=== PATIENT | male | born 1965 | race African-American/Black ===

== ENCOUNTER 2021-03-07 08:23 | Outpatient (CLI) | payer BC, SELFPAY ==
--- NOTE | 2021-03-07 10:30 | ECG_ITS ---
Measurements Intervals [place] Rate: 61 P: 44 [place]: 156 QRS: 27 QRSD: 101 T: 19 QT: 385 QTc: 391 Interpretive Statements SINUS RHYTHM BASELINE ARTIFACT- I, II, III, AVR, AVL, AVF, V1-V6 BORDERLINE ECG Electronically Signed On 03-07-2021 11:03:13 CDT by Tommie Mcdaniels D.O.
[2021-03-07 11:03] LABS: Basophils Percent Auto 0.7 % (0.2-1.2); Eosinophils Absolute Auto 0.2 K/mm3 (0-0.3); Eosinophils Percent Auto 2.7 % (0-4.4); Hematocrit 43.6 % (42.0-52.0); Hemoglobin 14.4 g/dL (14.0-18.0); Immature Granulocyte Absolute 0.02 K/mm3 (0.00-0.031); Immature Granulocyte Percent A 0.3 % (0-0.5); Lymphocytes Absolute Auto 1.91 K/mm3 (0.9-3.2); Lymphocytes Percent Auto 32.6 % (18.3-44.2); Mean Corpuscular Hemoglobin 29.3 pg (26-34); Mean Corpuscular Volume 88.8 fl (80-100); Mean Platelet Volume 9.6 fl (7.4-10.4); Monocytes Absolute Auto 0.5 K/mm3 (0.1-0.6); Monocytes Percent Auto 7.9 % (2.6-8.5); Neutrophils Absolute Auto 3.3 K/mm3 (1.3-6.7); Neutrophils Percent Auto 55.8 % (45.5-73.1); Platelet Count Result 232 k/mm3 (150-375); Red Blood Count 4.91 M/mm3 (4.6-6.20); Red Cell Distribution Width 12.7 % (11.5-14.5); White Blood Count 5.9 K/mm3 (4.5-10.0)
[2021-03-07 11:06] LABS: Add Urine Microscopic? YES; Appearance Urine Clear (Clear); Bacteria Urine Trace /hpf; Bilirubin Urine Negative (Negative); Blood Urine Negative (Negative); Color Urine Yellow (Yellow); Glucose Urine UA Negative (Negative); Ketones Urine Negative (Negative); Leukocyte Esterase Ur Negative LEU/UL (Negative); Mucus Urine Rare /lpf; Nitrate Urine Negative (Negative); Protein Urine Negative (Negative); RBC Urine 0-2 /hpf (0-2); Squamous Epithelial Cell Urine Occasional /hpf (Few); WBC Urine 0-3 /hpf
[2021-03-07 11:10] LABS: Albumin Level 4.1 g/dL (3.5-5.1); Anion Gap 4 mmol/L (8-16); Blood Urea Nitrogen 16 mg/dL (9-20); Calcium 9.1 mg/dL (8.4-10.2); Carbon Dioxide 30 mmol/L (22-30); Chloride 106 mmol/L (98-107); Estimated Glomerular Filt Rate > 60; Glucose 99 mg/dL (75-110); Hemoglobin A1C 5.5 % (<5.7); Sodium 140 mmol/L (137-145)
[2021-03-07 11:12] LABS: Urine Cotinine NEGATIVE
[2021-03-07 11:16] LABS: INR 0.9; Prothrombin Time 13.2 Seconds (11.1-14.7)
[2021-03-07 11:17] LABS: Partial Thromboplastin Time 26.5 SECONDS (22.3-36.8)
== END 2021-03-07 08:24 | disposition home or self-care (01) ==
PROVIDERS: Visit Provider Orthopaedic Surgery
DX: Z01.818 Encounter for other preprocedural examination (principal); M16.12 Unilateral primary osteoarthritis, left hip
CPT/HCPCS: 80048; 80307; 81001; 82040; 83036; 85025; 85610; 85730; 86850; 86900; 86901; 87081; 93005

== ENCOUNTER → 2021-03-11 01:15 | Outpatient (CLI) | payer BC, SELFPAY ==
[2021-03-11 19:16] LABS: SARS-CoV-2 RNA PCR Negative
== END ==
PROVIDERS: Visit Provider Orthopaedic Surgery
DX: Z01.812 Encounter for preprocedural laboratory examination (principal); Z20.822 Contact with and (suspected) exposure to COVID-19
CPT/HCPCS: C9803; U0003; U0005

== ENCOUNTER 2021-03-15 01:22 | Day surgery (SDC) | payer BC, SELFPAY ==
[2021-03-07 10:16] VITALS: BP 130/88; PULSE 72; RESP 20; TEMP 36.9; O2SAT 98; BMI 34.5
[2021-03-15] VITALS (15 sets, daily range): BP systolic 106–144; BP diastolic 64–96; PULSE 66–107; RESP 12–20; TEMP 36.1–37.4; O2SAT 94–100
--- NOTE | ~2021-03-15 | XR_ITS ---
EXAMINATION: XR hip LT 1V EXAM DATE: 03/15/2021 10:39 INDICATION: Left hip arthroplasty. TECHNIQUE: Portable frontal projection left hip obtained immediately following arthroplasty performe d by orthopedic surgeon Jake Marin MD. FINDINGS: Patient is status post left hip arthroplasty. The orthopedic hardware is in expected posi tion on this frontal image. Gas within the hip joint. There is small amount of subcutaneous gas, some soft tissue swelling. Correlate with procedure note. IMPRESSION: Status post left hip arthroplasty. Reviewed, dictated and finalized at location B.
[2021-03-15] MEDS: ACETAMINOPHEN 500 MG TABLET 1000 MG PO (06:47)
--- NOTE | 2021-03-15 06:59 | P.PNAN_ITS ---
Anes - Initial Pre Proc Eval Procedure: Operation Date: 03/15/21 07:30 Proposed Procedures p Left Total Hip Arthroplasty - Jake Marin MD Date/Time: 03/15/21 06:59 Surgeon: Jake Marin MD Pre Op Diagnosis: Left Hip DJD Patient Data Age: 55 Gender: M Height: 1.8 m Weight: 112.3 kg Last Vital Signs Temp 36.9 C 03/07/21 10:16 Pulse 72 03/07/21 10:16 Resp 20 03/07/21 10:16 BP 130/88 03/07/21 10:16 Pulse Ox 98 03/07/21 10:16 Allergies Allergy/AdvReac Type Severity Reaction Status Date / Time povidone-iodine Allergy Intermediate Swelling Verified 03/15/21 06:44 [From Betadine] soap [From Betadine] Allergy Intermediate Swelling Verified 03/15/21 06:44 Home Medications Medication Instructions Recorded Confirmed Type acetaminophen 650 mg 650 mg PO Q12H PRN 08/29/20 03/15/21 History tablet,extended release chlorhexidine gluconate 4 % 1 applic TOPICAL ONCE #237 ml 12/22/20 03/15/21 Rx topical liquid hydrocodone-acetaminophen 1 tablet Q4-6H PRN 03/07/21 03/15/21 History Patient hx anesthesia problems: none Family hx anesthesia problems: none [facility] Past Medical History Medical History (Updated 03/14/21 @ 13:13 by Arnold Kirby, DO) Chronic, continuous use of opioids 10/325 [place] 4-6 hours Degenerative joint disease of left hip Left hip pain Vision abnormalities Weight loss Surgical History Surgical History History of arthroscopy of knee Dr. Gama at [facility] Social History Social History Smoking status: Never smoker Alcohol intake: current Drinks per week: 3 Substance use: never Substance use type: does not use Living arrangements: with family Spiritual care concerns: No (PT STATES BLOOD PRODUCTS OK TO RECEIVE) Anes - Eval Final PreProcedure Day of Procedure 03/15/21 06:59 Patient weight: obese Heart: regular rate and rhythm Lungs: clear to auscultation and normal air movement Airway: Mallampati scale class II Neurological: alert and oriented Last oral intake: >/= 8 hours ASA classification: III Emergent: no Anesthetic plan: proceed Anesthesia type and monitoring: general ETT and standard monitoring Informed Consent: The patient's anesthetic plan and its attendant risks and benefits were discussed with the patient/family/POA. Questions were solicited a nd answers provided to the satisfaction of the patient/family/POA.
[2021-03-15] MEDS: LACTATED RINGERS 1,000 ML 30 ML IV CONT ×2 (07:03→10:24)
[2021-03-15] MEDS: TRANEXAMIC ACID 1,000MG/ISO100 1,000 MG/100 ML BAG 200 MG IVPB (07:14)
--- NOTE | 2021-03-15 07:20 | WPDHPUPDATE1 ---
History and Physical Update Update Date/Time: 03/15/21 07:20 History and Physical has been reviewed, including an updated exam of the patient. There are NO changes in the patient's condition. Risks, benefits, and alternatives have been discussed and questions answered. Patient agrees to proceed with procedure.
[2021-03-15] MEDS: ceFAZolin 2 GM/D5W 50 ML 2 GM/50 ML BAG IVPB ×3 (07:30→23:39)
--- NOTE | 2021-03-15 10:16 | P.OP_ITS ---
Procedure Note - Detailed Date of procedure: 03/15/21 Pre-op diagnosis: Left Hip DJD LEFT HIP DJD Post-op diagnosis: same Procedure performed: LEFT REJI Description of procedure: THE PATIENT WAS TAKEN TO THE OPERATING ROOM IN STABLE CONDITION. SHE WAS PLACED IN THE LATERAL DECUBITUS AND THE LEFT LOWER EXTREMITY WAS PREPPED AND DRAPED IN THE STERILE FASHION. INCISION WAS MADE IN THE POSTERIOR LATERAL SIDE OF THE HIP, DOWN TO THE FASCIA LAYER. THE FASCIA WAS INCISED. THE HIP WAS EXPOSED. THE SHORT EXTERNAL ROTATORS WERE EXPOSED AND THE SCIATIC NERVE WAS VISUALIZED. THE CAPSULE WAS INCISED EXPOSING THE HIP JOINT. THE HIP WAS DISLOCATED. AN OSTEOTOMY WAS MADE TO THE FEMORAL NECK ABOUT 1 CM PROXIMAL TO THE LESSER TROCHANTER. THE ACETABULUM WAS EXPOSED. THERE WAS SEVERE DJD SEEN. THE ACETABULUM WAS REAMED TO 49 MM. A 49 MM TRIAL WAS PLACED IN 35 DEG OF ABDUCTION AND ANTEVERSION WAS IN ALIGNMENT WITH THE TRANS ACETABULAR LIGAMENT. THE FIT WAS EXCELLENT. THE TRIAL WAS REMOVED. A 56 MM BIOMET G7 COMPONENT WAS THEN TAPPED IN TO PLACE IN 35 DEG OF ABDUCTION AND ANTEVERSION IN ALIGNMENT WITH THE TRANSVERSE ACETABULAR LIGAMENT. THE ACETABULAR LINER WAS PLACED AND CHECKED FOR STABILITY. NEXT THE FEMUR WAS PREPARED WITH INITIAL CANAL FINDER THEN SEQUENTIAL BROACHING TILL AN 7 BROACH FIT WELL IN 15 DEG OF ANTE VERSION. A +3 HIGH OFFSET NECK WITH 36 MM HEAD TRIAL WAS PLACED. THE STEPHAN TEST WAS EXCELLENT AND THE STABILITY IN FLEXION AND ROTATION WAS EXCELLENT. LEG LENGTHS WERE GROSSLY EQUAL. TRIALS WERE REMOVED. A BIOMET TAPERLOC 7 STEM WAS PLACED WITH A HIGH OFFSET NECK. THE FIT WAS EXC ELLENT IN 15 DEG OF ANTEVERSION. A +3 CERAMIC 36 MM FEMORAL HEAD WAS PLACED. THE HIP WAS TRIALED AND THE STABILITY WAS EXCELLENT WERE THE LEG LENGTHS AND THE SCHUK TEST. THE WOUND WAS IRRIGATED WITH STERILE BETADINE AND WATER FOR 3 MIN. THEN WASHED AGAIN. THE CAPSULE AND THE EXTERNAL ROTATORS WERE APPROXIMATED WITH NUMBER 1 VICRYL. THE FASCIA WITH No 2 QUIL AND THE SUB CUTANEOUS LAYER WITH 2-0 ABSORBABLE SUTURE WITH A RUNNING 3-0 SUBCUTICULAR LAYER WELL. DERMABOND WAS PLACED AND STERILE DRESSING WAS APPLIED. PATIENT WAS PLACED BACK ON TO THE SUPINE POSITION AND WAS EXTUBATED. Anesthesia: GETA Surgeon: Jake Marin MD Estimated blood loss (mL): 450 Drains: No Complications: No immediate complications Condition: stable Disposition: PACU
[2021-03-15] MEDS: ONDANSETRON INJ 4 MG/2 ML VIAL IV PUSH (10:48)
[2021-03-15] MEDS: fentaNYL CITRATE INJ (*CRX) 100 MCG/2 ML VIAL 25 MCG IV PUSH ×2 (10:49→11:13)
--- NOTE | 2021-03-15 11:16 | SUR.PHASEI ---
1116 - dr miranda at bedside assessing pt
--- NOTE | 2021-03-15 11:40 | ADMGEN ---
This patient, Evangelista Henderson, was admitted to Medical Room 254-01. Patient/family oriented to hospital policies and general routines including ID bracelet, bed and alarms, visiting hours, pain management, procedures, bathroom and other care routines, personal items, smoking policy, room service/diet, and visiting hours. Information on how to activate the Rapid Response Team has been discussed. Patient/Family are encouraged to report perceived risks to care and to ask questions if they do not understand what they are told or what they should do.
[2021-03-15] MEDS: KETOROLAC 15 MG/ML VIAL (*BKC) IV PUSH ×3 (11:52→23:38)
[2021-03-15] MEDS: HYDROcodone/acetaminophen (*CRX) 7.5-325 MG TABLET 1 TAB PO ×2 (11:53→18:48)
[2021-03-15 11:56] LABS: Hematocrit 40.7 % (42.0-52.0); Hemoglobin 13.3 g/dL (14.0-18.0)
[2021-03-15] MEDS: DOCUSATE SODIUM 100 MG CAPSULE PO (17:32)
[2021-03-15] MEDS: diazePAM (*CRX) 5 MG TABLET PO (18:48)
[2021-03-15] MEDS: FAMOTIDINE 20 MG TABLET PO (20:16)
[2021-03-16 01:13] VITALS: BP 130/87; PULSE 108; RESP 20; TEMP 36.4; O2SAT 98
[2021-03-16] MEDS: HYDROcodone/acetaminophen (*CRX) 7.5-325 MG TABLET 1 TAB PO (04:10)
[2021-03-16 05:13] VITALS: BP 147/80; PULSE 101; RESP 21; TEMP 36.7; O2SAT 100
[2021-03-16 05:35] LABS: Basophils Percent Auto 0.1 % (0.2-1.2); Hemoglobin 11.9 g/dL (14.0-18.0); Immature Granulocyte Absolute 0.07 K/mm3 (0.00-0.031); Immature Granulocyte Percent A 0.5 % (0-0.5); Lymphocytes Absolute Auto 1.26 K/mm3 (0.9-3.2); Lymphocytes Percent Auto 9.3 % (18.3-44.2); Mean Corpuscular HGB Conc 33.1 g/dl (32-36); Mean Corpuscular Hemoglobin 29.5 pg (26-34); Mean Corpuscular Volume 89.3 fl (80-100); Mean Platelet Volume 9.7 fl (7.4-10.4); Monocytes Absolute Auto 1.3 K/mm3 (0.1-0.6); Monocytes Percent Auto 9.7 % (2.6-8.5); Neutrophils Absolute Auto 10.9 K/mm3 (1.3-6.7); Neutrophils Percent Auto 80.4 % (45.5-73.1); Platelet Count Result 198 k/mm3 (150-375); Red Blood Count 4.03 M/mm3 (4.6-6.20); Red Cell Distribution Width 12.6 % (11.5-14.5); White Blood Count 13.5 K/mm3 (4.5-10.0)
[2021-03-16 05:48] LABS: Chloride 102 mmol/L (98-107)
[2021-03-16 05:55] LABS: Anion Gap 2 mmol/L (8-16); Blood Urea Nitrogen 12 mg/dL (9-20); Calcium 8.5 mg/dL (8.4-10.2); Carbon Dioxide 30 mmol/L (22-30); Estimated CRCL calculation 105 ml/min; Estimated Glomerular Filt Rate > 60; Glucose 123 mg/dL (75-110); Potassium 4.1 mmol/L (3.4-5.0); Sodium 134 mmol/L (137-145)
[2021-03-16] MEDS: KETOROLAC 15 MG/ML VIAL (*BKC) IV PUSH ×2 (06:02→11:45)
[2021-03-16] MEDS: ceFAZolin 2 GM/D5W 50 ML 2 GM/50 ML BAG IVPB (06:02)
--- NOTE | 2021-03-16 07:47 | WPDANESPN ---
Anes - Prog Note Post-Op Date/Time: 03/16/21 07:47 Cardiovascular status: normal Respiratory status: normal Airway patency: baseline Mental status: baseline Post-Op hydration status: normal Vital Signs: Last Vital Signs Temp 36.7 C 03/16/21 05:13 Pulse 101 H 03/16/21 05:13 Resp 21 H 03/16/21 05:13 BP 147/80 H 03/16/21 05:13 Pulse Ox 100 03/16/21 05:13 Pain Score (VAS): 0 I/O: Intake & Output 03/15/21 03/15/21 03/16/21 15:59 23:59 07:59 Intake Total 925 191 5759 Output Total 1600 Balance 640 440 -600 Laboratory Tests 03/16/21 05:22 03/16/21 05:22 03/15/21 03/16/21 03/16/21 11:44 05:22 05:22 WBC 13.5 H RBC 4.03 L Hgb 13.3 L 11.9 L Hct 40.7 L 36.0 L MCV 89.3 MCH 29.5 MCHC 33.1 RDW 12.6 Plt Count 198 MPV 9.7 Immature Gran % (Auto) 0.5 Neut % (Auto) 80.4 H Lymph % (Auto) 9.3 L [place] % (Auto) 9.7 H Eos % (Auto) 0.0 Baso % (Auto) 0.1 L Lymph # (Auto) 1.26 [place] # (Auto) 1.3 H Eos # (Auto) 0.0 Baso # (Auto) 0.0 Abs Immat Gran (auto) 0.07 H Absolute Neuts (auto) 10.9 H Absolute Nucleated RBC 0.0 Nucleated RBC % 0.0 Sodium 134 L Potassium 4.1 Chloride 102 Carbon Dioxide 30 Anion Gap 2 L BUN 12 Creatinine 0.90 Estim Creat Clear Calc 105 Estimated GFR > 60 Glucose 123 H Calcium 8.5 Post-procedural complaints: none Patient Feedback: Patient satisfied with anesthetic care.
[2021-03-16] MEDS: DOCUSATE SODIUM 100 MG CAPSULE PO (09:13)
[2021-03-16] MEDS: ASPIRIN 325 MG ENTERIC TABLET 650 MG PO (09:13)
[2021-03-16] MEDS: FAMOTIDINE 20 MG TABLET PO (09:13)
--- NOTE | 2021-03-16 09:20 | PM.PNORT ---
Progress Note: A&P Assessment and Plan (1) S/P total hip arthroplasty: Qualifiers: Laterality: left Qualified Code(s): Z96.642 - Presence of left artificial hip joint Code(s): Z96.649 - Presence of unspecified artificial hip joint Status: Acute Assessment and Plan: POD #1: LEFT REJI Continue PT/OT. WBAT. Walker. HIGH FALL RISK. REJI precautions. Continue pain control. Ice lateral hip. Continue DVT prophylaxis. SCDs. Incentive spirometry. Monitor dressing. Change prior to discharge. Dispo: Home with Home Health pending progress with PT/OT. Subjective Subjective Date/Time Seen: 03/16/21 09:20 POD #1: LEFT REJI Working well with PT/OT this AM. Performing stairs. Following REJI precautions. Hopeful for discharge home today. Review of Systems Constitutional: Constitutional: Denies chills, Denies fatigue, Denies fever(s), Denies night sweats and Denies weakness Cardiovascular: Cardiovascular: Denies chest pain, Denies lightheadedness, Denies palpitations and Denies dyspnea Respiratory: Respiratory: Denies cough, Denies dyspnea and Denies wheezing Gastrointestinal: Gastrointestinal: Denies abdominal pain, Denies diarrhea, Denies nausea and Denies vomiting Musculoskeletal: Musculoskeletal: Reports arthralgias (left hip ), Reports joint swelling (left hip ) and Denies numbness Neurologic: Denies numbness and Denies weakness Endocrine: Endocrine: Denies fatigue and Denies palpitations Allergic/Immunologic: Allergic/Immunologic: Denies wheezing Exam Const: General: comfortable and no acute distress Resp: Effort & Inspection: normal respiratory effort Cardio: Rate: regular rate Rhythm: regular rhythm GI: Inspection: non-distended Skin: General skin exam: normal color Wounds: wounds noted (incision left hip C/D/I ) Neuro: Cognition (Neuro): normal cognition Extrem: Left lower extremity: hip/thigh Details: tenderness Location: of the hip Location: laterally and anteriorly, swelling (thigh soft ) Location: of the hip (lateral. ), abnormal ROM (limitations with internal/external rotation and flexion/extension due to recent surgical intervention ) and other (incision lateral hip c/d/i. ), knee Details: normal to inspection and normal ROM; no tenderness and no swelling, lower leg (Negative Samra's Sign ) Details: no edema, ankle (+ankle dorsiflexion/plantarflexion ) Details: normal to inspection, no edema and normal ROM; no tenderness, no swelling and no warmth and foot Details: normal capillary refill, toes with normal ROM, vascular exam Details: dorsalis pedis pulse present and motor-sensory exam light-touch normal in all toes; no tenderness, no ecchymosis and no crepitus Psych: Mental Status: mental status grossly normal Affect: normal affect Objective Data Vital Signs Vital Signs: Vital Signs - 24 hr 03/15/21 10:24 03/15/21 10:39 03/15/21 10:54 Temperature 36.2 C L Pulse Rate 74 78 71 Respiratory Rate 12 15 12 Blood Pressure 126/79 134/66 111/76 Pulse Oximetry 100 97 95 03/15/21 11:10 03/15/21 11:25 03/15/21 11:28 Temperature 36.1 C L Pulse Rate 72 74 73 Respiratory Rate 16 18 16 Blood Pressure 116/77 106/70 113/69 Pulse Oximetry 96 94 97 03/15/21 11:43 03/15/21 11:45 03/15/21 12:13 Temperature 36.1 C L 36.1 C L Pulse Rate 77 74 Respiratory Rate 16 16 16 Blood Pressure 113/75 112/72 Pulse Oximetry 96 96 96 03/15/21 12:23 03/15/21 12:25 03/15/21 13:13 Temperature 36.1 C L 36.1 C L Pulse Rate 76 76 Respiratory Rate 16 16 Blood Pressure 113/64 113/64 Pulse Oximetry 96 96 96 03/15/21 16:00 03/15/21 21:03 03/16/21 01:13 Temperature 36.2 C L 37.4 C 36.4 C Pulse Rate 78 107 H 108 H Respiratory Rate 20 20 20 Blood Pressure 114/70 139/92 H 130/87 Pulse Oximetry 96 99 98 03/16/21 05:13 Temperature 36.7 C Pulse Rate 101 H Respiratory Rate 21 H Blood Pressure 147/80 H Pulse Oximetry 100 Intake/Output Intake/Output: Intake & Outp
[2021-03-16 09:25] VITALS: RESP 20; O2SAT 100
[2021-03-16 10:00] VITALS: BP 128/83; PULSE 104; RESP 20; TEMP 37.1; O2SAT 99
[2021-03-16 13:13] VITALS: BP 118/98; PULSE 106; RESP 22; TEMP 37.1; O2SAT 100
--- NOTE | 2021-03-16 14:10 | PM.DS ---
DS: Admitting Diagnosis Admitting Diagnosis Admitting Diagnosis: Left hip DJD DS: Discharge Diagnosis Discharge Diagnosis (1) S/P total hip arthroplasty: Qualifiers: Laterality: left Qualified Code(s): Z96.642 - Presence of left artificial hip joint Code(s): Z96.649 - Presence of unspecified artificial hip joint Status: Acute Assessment and Plan: POD #1: LEFT REJI Continue PT/OT. WBAT. Walker. HIGH FALL RISK. REJI precautions. Continue pain control. Ice lateral hip. Continue DVT prophylaxis. SCDs. Incentive spirometry. Monitor dressing. Change prior to discharge. Dispo: Home with Home Health pending progress with PT/OT. DS: Summary Hospital Course Reason for hospitalization: left total hip arthroplasty Hospital Course: 55-year-old male admitted [facility] status post total hip arthroplasty For postoperative pain control, medical management and mobilization with physical and occupational therapy. Patient progressed well on postop day 1. He was walking down and up stairs and around the hallway frequently. His pain has been well controlled. His vitals and labs have been stable. He has been cleared by PT and OT to be discharged home with home health at this time. All questions were answered and patient feels prepared to be discharged home. His dressing will be changed prior to discharge and he was sent home with 1 additional dressing to be changed in 5 days with home health RN. He will follow up in outpatient orthopedic clinic in approximately 3 weeks. Reiterated importance of total hip precautions prior to discharge. Status at Discharge Functional status at discharge: uses cane/walker Overall status at discharge: patient is progressing back to baseline Time Spent with Patient Time attestation: Total time spent providing and/or coordinating discharge services: Exam Const: General: comfortable and no acute distress Resp: Effort & Inspection: normal respiratory effort Cardio: Rate: regular rate Rhythm: regular rhythm GI: Inspection: non-distended Skin: General skin exam: normal color Wounds: wounds noted (incision left hip C/D/I ) Neuro: Cognition (Neuro): normal cognition Extrem: Left lower extremity: hip/thigh Details: tenderness Location: of the hip Location: laterally and anteriorly, swelling (thigh soft ) Location: of the hip (lateral. ), abnormal ROM (limitations with internal/external rotation and flexion/extension due to recent surgical intervention ) and other (incision lateral hip c/d/i. ), knee Details: normal to inspection and normal ROM; no tenderness and no swelling, lower leg (Negative Samra's Sign ) Details: no edema, ankle (+ankle dorsiflexion/plantarflexion ) Details: normal to inspection, no edema and normal ROM; no tenderness, no swelling and no warmth and foot Details: normal capillary refill, toes with normal ROM, vascular exam Details: dorsalis pedis pulse present and motor-sensory exam light-touch normal in all toes; no tenderness, no ecchymosis and no crepitus Psych: Mental Status: mental status grossly normal Affect: normal affect DS: Data Data Completed and Pending Labs on day of discharge: Labs from last 24 hours 03/16/21 03/16/21 05:22 05:22 WBC 13.5 H RBC 4.03 L Hgb 11.9 L Hct 36.0 L MCV 89.3 MCH 29.5 MCHC 33.1 RDW 12.6 Plt Count 198 MPV 9.7 Immature Gran % (Auto) 0.5 Neut % (Auto) 80.4 H Lymph % (Auto) 9.3 L [place] % (Auto) 9.7 H Eos % (Auto) 0.0 Baso % (Auto) 0.1 L Lymph # (Auto) 1.26 [place] # (Auto) 1.3 H Eos # (Auto) 0.0 Baso # (Auto) 0.0 Abs Immat Gran (auto) 0.07 H Absolute Neuts (auto) 10.9 H Absolute Nucleated RBC 0.0 Nucleated RBC % 0.0 Sodium 134 L Potassium 4.1 Chloride 102 Carbon Dioxide 30 Anion Gap 2 L BUN 12 Creatinine 0.90 Estim Creat Clear Calc 105 Estimated GFR > 60 Glucose 123 H Calcium 8.5 Discharge Plan Discharge Patient Disp
== END 2021-03-16 15:35 | disposition home health service (06) ==
LOC: ANHSURGERY 06:02 → ANH2MED 11:33
PROVIDERS: Visit Provider Orthopaedic Surgery
PROC: (CPT 27130; principal; 2021-03-15 07:30)
DX: M16.12 Unilateral primary osteoarthritis, left hip (principal); M25.552 Pain in left hip; E66.9 Obesity, unspecified; Z68.34 Body mass index [BMI] 34.0-34.9, adult
CPT/HCPCS: 27130; 36415; 73501; 80048; 85014; 85018; 85025; 97110; 97116; 97161; 97165; A9270; C1776; J0171; J0330; J0690; J1100; J1165; J1170; J1885; J2250; J2270; J2405; J2704; J2710; J2795; J3010; J7120

== ENCOUNTER 2021-05-15 20:18 | Emergency (ER) | payer BC, SELFPAY ==
[2021-05-15] VITALS (11 sets, daily range): BP systolic 108–120; BP diastolic 79–94; PULSE 97–111; RESP 14–33; TEMP 37.2–38.8; O2SAT 93–97
--- NOTE | ~2021-05-15 | XR_ITS ---
EXAMINATION: XR chest 2V EXAM DATE: 05/15/2021 20:47 INDICATION: chest pain, shortness of breath, cold symptoms for 7 days. TECHNIQUE: Frontal and lateral projections of the chest obtained and reviewed. There is no prior gianna dy for comparison. FINDINGS: There is patchy bibasilar airspace disease probably multifocal atelectasis and pneumonia. Upper lung zones are clear. Cardiomediastinal silhouette is normal. There is no pneumothorax suspecte d. There are no pleural effusions. Patient has diffuse idiopathic skeletal hyperostosis (DISH). IMPRESSION: 1. Multifocal bibasilar airspace disease probably pneumonia and atelectasis. Reviewed, dictated and finalized at location G.
--- NOTE | 2021-05-15 20:39 | ECG_ITS ---
Measurements Intervals [place] Rate: 104 P: 18 [place]: 136 QRS: 32 QRSD: 88 T: -9 QT: 313 QTc: 412 Interpretive Statements SINUS TACHYCARDIA POSSIBLE LEFT ATRIAL ENLARGEMENT NONSPECIFIC T-WAVE ABNORMALITY- INFERIOR LEADS BORDERLINE ECG Electronically Signed On 05-16-2021 9:33:49 CDT by Tommie Mcdaniels D.O.
[2021-05-15 21:37] LABS: Hematocrit 40.3 % (42.0-52.0); Hemoglobin 13.4 g/dL (14.0-18.0); Immature Granulocyte Absolute 0.01 K/mm3 (0.00-0.031); Immature Granulocyte Percent A 0.3 % (0-0.5); Lymphocytes Absolute Auto 1.05 K/mm3 (0.9-3.2); Lymphocytes Percent Auto 36.3 % (18.3-44.2); Mean Corpuscular HGB Conc 33.3 g/dl (32-36); Mean Corpuscular Hemoglobin 28.3 pg (26-34); Mean Platelet Volume 10.1 fl (7.4-10.4); Monocytes Absolute Auto 0.2 K/mm3 (0.1-0.6); Monocytes Percent Auto 6.2 % (2.6-8.5); Neutrophils Absolute Auto 1.7 K/mm3 (1.3-6.7); Neutrophils Percent Auto 57.2 % (45.5-73.1); Platelet Count Result 156 k/mm3 (150-375); Red Blood Count 4.74 M/mm3 (4.6-6.20); Red Cell Distribution Width 12.9 % (11.5-14.5); White Blood Count 2.9 K/mm3 (4.5-10.0)
[2021-05-15 21:45] LABS: Anion Gap 11 mmol/L (8-16); Blood Urea Nitrogen 12 mg/dL (9-20); Calcium 8.6 mg/dL (8.4-10.2); Carbon Dioxide 24 mmol/L (22-30); Chloride 100 mmol/L (98-107); Estimated CRCL calculation 89 ml/min; Estimated Glomerular Filt Rate > 60; Glucose 112 mg/dL (75-110); Potassium 3.4 mmol/L (3.4-5.0); Sodium 135 mmol/L (137-145)
[2021-05-15 21:47] LABS: INR 0.9; Partial Thromboplastin Time 24.1 SECONDS (22.3-36.8); Prothrombin Time 12.4 Seconds (11.1-14.7)
[2021-05-15 21:58] LABS: Troponin I < 0.012 ng/mL (0.000-0.034)
[2021-05-15] MEDS: ALBUTEROL SULFATE (*SP) INHALER 2 PUFF INHALATION (23:10)
[2021-05-15] MEDS: SODIUM CHLORIDE 0.9% IV 1,000 ML 999 ML IV CONT (23:21)
[2021-05-16 00:09] VITALS: BP 114/79; PULSE 98; RESP 28; O2SAT 95
[2021-05-16 00:09] LABS: Lactic Acid Reflex 0.8 mmol/L (0.7-2.1)
[2021-05-16 00:21] LABS: Troponin I < 0.012 ng/mL (0.000-0.034)
--- NOTE | 2021-05-16 00:34 | ED.GENADULT ---
HPI - General Adult General Chief complaint: Fever Stated complaint: cold x 7 days Time Seen by Provider: 05/15/21 22:52 History of Present Illness HPI narrative: Patient 55-year-old gentleman who presents the emergency department with chief complaint of shortness of breath fever and cough. Patient reports that for the last 7 days he has been having chills body aches fever patient reports has not been vaccinated for Covid and has not had Covid. The patient states not improved by anything or is worsened by anything. Related Data Home Medications Medication Instructions Recorded Confirmed acetaminophen 650 mg 650 mg PO Q12H PRN 08/29/20 04/06/21 tablet,extended release Allergies Allergy/AdvReac Type Severity Reaction Status Date / Time povidone-iodine Allergy Intermediate Swelling Verified 05/15/21 21:36 [From Betadine] soap [From Betadine] Allergy Intermediate Swelling Verified 05/15/21 21:36 Review of Systems Review of Systems: Narrative: A 10 system review of systems was completed on the patient and is negative except for what is stated in the HPI. Nursing and ancillary documentation was reviewed. [facility] Past Medical History Medical History Chronic, continuous use of opioids 10/325 [place] 4-6 hours Degenerative joint disease of left hip Left hip pain Vision abnormalities Weight loss Surgical History Surgical History History of arthroscopy of knee Dr. Gama at [facility] S/P total hip arthroplasty Social History Social History Alcohol intake: current Drinks per week: 3 Substance use: never Substance use type: does not use Gender identity (if verbalized by the patient): Male Spiritual care concerns: No (PT STATES BLOOD PRODUCTS OK TO RECEIVE) Exam Narrative: Exam Narrative: GENERAL: Well-appearing, well-nourished, and in no acute distress. HEAD: Normocephalic, atraumatic. EYES: PERRLA and EOMI. ENT: Nares clear, no rhinorrhea or epistaxis. Mucous membranes moist. NECK: Supple. CHEST: Clear to auscultation. No respiratory distress. HEART: Regular rate and rhythm. No murmur heard. Normal peripheral pulses. ABDOMEN: Soft, nontender, nondistended, normal active bowel sounds. EXTREMITIES: Normal range of motion. No edema. SKIN: Warm, dry, no rash. NEURO: No focal deficits. Alert and oriented x3. PSYCH: Normal mood and affect. Course Vital Signs Vital signs: Vital Signs Temperature 38.8 C H 05/15/21 20:35 Pulse Rate 111 H 05/15/21 20:35 Respiratory Rate 14 05/15/21 20:35 Blood Pressure 120/79 05/15/21 20:35 Pulse Oximetry 96 05/15/21 20:35 Temperature 37.2 C 05/15/21 21:28 Pulse Rate 98 05/16/21 00:09 Respiratory Rate 28 H 05/16/21 00:09 Blood Pressure 114/79 05/16/21 00:09 Pulse Oximetry 95 05/16/21 00:09 Medical Decision Making Vital Signs Vital Signs: Vital Signs Temperature 38.8 C H 05/15/21 20:35 Pulse Rate 111 H 05/15/21 20:35 Respiratory Rate 14 05/15/21 20:35 Blood Pressure 120/79 05/15/21 20:35 Pulse Oximetry 96 05/15/21 20:35 Temperature 37.2 C 05/15/21 21:28 Pulse Rate 98 05/16/21 00:09 Respiratory Rate 28 H 05/16/21 00:09 Blood Pressure 114/79 05/16/21 00:09 Pulse Oximetry 95 05/16/21 00:09 Lab Data Result diagrams: 05/15/21 21:25 05/15/21 21:25 Labs: Lab Results 05/15/21 05/15/21 05/15/21 Range/Units 21:25 21:25 21:25 WBC 2.9 L (4.5-10.0) K/mm3 RBC 4.74 (4.6-6.20) M/mm3 Hgb 13.4 L (14.0-18.0) g/dL Hct 40.3 L (42.0-52.0) % MCV 85.0 (80-100) fl MCH 28.3 (26-34) pg MCHC 33.3 (32-36) g/dl RDW 12.9 (11.5-14.5) % Plt Count 156 (150-375) k/mm3 MPV 10.1 (7.4-10.4) fl Immature Gran % (Auto) 0.3 (0-0.5) %
[2021-05-16] MEDS: DOXYCYCLINE HYCLATE 100 MG TABLET PO (01:10)
[2021-05-16 01:11] VITALS: BP 112/76; PULSE 93; RESP 22; O2SAT 97
[2021-05-16 16:16] LABS: SARS-CoV-2 RNA PCR Positive
== END 2021-05-16 01:15 | disposition home or self-care (01) ==
PROVIDERS: Emergency Medicine; Emergency Provider Emergency Medicine
DX: U07.1 COVID-19 (principal); J18.9 Pneumonia, unspecified organism
CPT/HCPCS: 36415; 71046; 80048; 83605; 84484; 85025; 85610; 85730; 93005; 96361; 96365; 99284; A9270; C9803; J0131; J7030; U0003; U0005

== ENCOUNTER 2021-07-16 11:09 | Emergency (ER) | payer BC, SELFPAY ==
[2021-07-16] VITALS (7 sets, daily range): BP systolic 144–149; BP diastolic 92–104; PULSE 51–73; RESP 16–18; TEMP 36.8; O2SAT 97–100
--- NOTE | ~2021-07-16 | XR_ITS ---
EXAMINATION: XR chest 2V DATE: 07/16/2021 12:10 INDICATION: Dizziness and hypertension TECHNIQUE: PA and lateral views of the chest were obtained. COMPARISON: Chest radiograph dated 05/15/2021 FINDINGS: The lungs are clear with no focal airspace opacities, pulmonary edema, pleural effusion or pneumothor ax. The cardiomediastinal silhouette is normal. Mild to moderate thoracic spondylosis. IMPRESSION: 1. No acute cardiopulmonary disease. Reviewed, dictated and finalized at location A.
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
--- NOTE | 2021-07-16 11:20 | PC.NURSE ---
Patient reports history of hip replacement approximately 1 month ago.
--- NOTE | 2021-07-16 12:01 | ECG_ITS ---
Measurements Intervals [place] Rate: 60 P: 48 DC: 172 QRS: 38 QRSD: 94 T: 32 QT: 402 QTc: 404 Interpretive Statements SINUS RHYTHM ST ELEVATION IN DIFFUSE LEADS- PROBABLY EARLY REPOLARIZATION ABNORMALITY BASELINE ARTIFACT- I, II, III, AVR, AVL, AVF, V1-V6 BORDERLINE ECG Electronically Signed On 07-16-2021 20:37:23 CDT by Tommie Mcdaniels D.O.
--- NOTE | 2021-07-16 12:25 | ED.GENADULT ---
HPI - General Adult General Chief complaint: Unspecified Stated complaint: elevated blood pressure Time Seen by Provider: 07/16/21 12:01 Source: patient Mode of arrival: ambulatory Limitations: no limitations History of Present Illness HPI narrative: This is a 56-year-old male that presents to the emergency department for dizziness noted over the last couple of days. Reports he feels like the room is spinning, especially with certain head movements. Reports he had his blood pressure taken today and it was elevated which prompted him to be seen. Denies fever, vision changes, vomiting, chest pain, shortness of breath, numbness, or weakness. Related Data Home Medications Medication Instructions Recorded Confirmed acetaminophen 650 mg 650 mg PO Q12H PRN 08/29/20 06/12/21 tablet,extended release cyclobenzaprine mg 07/16/21 hydrocodone-acetaminophen tablet 07/16/21 Allergies Allergy/AdvReac Type Severity Reaction Status Date / Time povidone-iodine Allergy Intermediate Swelling Verified 07/16/21 11:17 [From Betadine] soap [From Betadine] Allergy Intermediate Swelling Verified 07/16/21 11:17 Review of Systems Review of Systems: CONSTITUTIONAL: Denies fever EYES: Denies visual changes CARDIOVASCULAR: Denies chest pain, or edema. RESPIRATORY: Denies dyspnea. GASTROINTESTINAL: Denies vomiting NEUROLOGIC: Denies numbness, or weakness. All systems reviewed & are unremarkable except as noted in HPI and below PMFSH Past Medical History Medical History Chronic, continuous use of opioids 10/325 [place] 4-6 hours Degenerative joint disease of left hip Left hip pain Vision abnormalities Weight loss Surgical History Surgical History History of arthroscopy of knee Dr. Gama at [facility] S/P total hip arthroplasty Social History Social History (Updated 06/12/21 @ 14:35 by Maribel Baker MA) Smoking status: Never smoker Alcohol intake: current Drinks per week: 3 Alcohol use details: drinks on occasion, one per month Substance use: never Substance use type: does not use Gender identity (if verbalized by the patient): Male Spiritual care concerns: No (PT STATES BLOOD PRODUCTS OK TO RECEIVE) Exam Narrative: GENERAL: Well-appearing, obese, and in no acute distress. HEAD: Normocephalic, atraumatic. EYES: PERRLA and EOMI. ENT: Nares clear, no rhinorrhea or epistaxis. Mucous membranes moist. Oropharynx without tonsillar hypertrophy exudate or other lesions. Bilateral TMs pearly enciso non-bulging NECK: Supple. No adenopathy or masses. No carotid bruits or JVD CHEST: Clear to auscultation. No respiratory distress. No wheezes rales or rhonchi HEART: Regular rate and rhythm. No murmur heard. Normal peripheral pulses. EXTREMITIES: Normal range of motion. No edema. Strength equal in bilateral upper and lower extremities (5/5) SKIN: Warm, dry, no rash. NEURO: No focal deficits. Alert and oriented x3. Cranial nerves II through XII grossly intact. Normal [id number] PSYCH: Normal mood and affect Course Vital Signs Vital signs: Vital Signs Temperature 98.2 F 07/16/21 11:10 Pulse Rate 73 07/16/21 11:10 Respiratory Rate 18 07/16/21 11:10 Blood Pressure 149/99 H 07/16/21 11:10 Pulse Oximetry 100 07/16/21 11:10 Temperature 98.2 F 07/16/21 11:10 Pulse Rate 68 07/16/21 12:26 Respiratory Rate 16 07/16/21 12:25 Blood Pressure 144/104 H 07/16/21 12:25 Pulse Oximetry 100 07/16/21 12:25 Medical Decision Making MDM Narrative Medical decision making narrative: Patient presents to the emergency department for dizziness noted over the last couple of days. Had taken his blood pressure today and it was elevated. Blood pressure is elevated to the 140s to 150s systolic in the ED. He is afebrile and nontoxic-appearing. He is neurologically intact. CBC a
[2021-07-16 12:27] LABS: Eosinophils Absolute Auto 0.2 K/mm3 (0-0.3); Eosinophils Percent Auto 3.6 % (0-4.4); Hematocrit 41.8 % (42.0-52.0); Hemoglobin 13.6 g/dL (14.0-18.0); Immature Granulocyte Absolute 0.01 K/mm3 (0.00-0.031); Immature Granulocyte Percent A 0.2 % (0-0.5); Lymphocytes Absolute Auto 1.55 K/mm3 (0.9-3.2); Lymphocytes Percent Auto 37.3 % (18.3-44.2); Mean Corpuscular HGB Conc 32.5 g/dl (32-36); Mean Corpuscular Hemoglobin 28.4 pg (26-34); Mean Corpuscular Volume 87.3 fl (80-100); Mean Platelet Volume 9.4 fl (7.4-10.4); Monocytes Absolute Auto 0.4 K/mm3 (0.1-0.6); Monocytes Percent Auto 9.1 % (2.6-8.5); Neutrophils Percent Auto 48.8 % (45.5-73.1); Platelet Count Result 217 k/mm3 (150-375); Red Blood Count 4.79 M/mm3 (4.6-6.20); Red Cell Distribution Width 14.4 % (11.5-14.5); White Blood Count 4.2 K/mm3 (4.5-10.0)
[2021-07-16 12:37] LABS: Anion Gap 7 mmol/L (8-16); Blood Urea Nitrogen 16 mg/dL (9-20); Carbon Dioxide 24 mmol/L (22-30); Chloride 107 mmol/L (98-107); Estimated CRCL calculation 109 ml/min; Estimated Glomerular Filt Rate > 60; Glucose 97 mg/dL (65-110); Potassium 3.8 mmol/L (3.4-5.0); Sodium 138 mmol/L (137-145)
[2021-07-16] MEDS: ONDANSETRON INJ 4 MG/2 ML VIAL IV PUSH (12:42)
[2021-07-16] MEDS: SODIUM CHLORIDE 0.9% IV 500 ML 999 ML IV CONT (12:42)
[2021-07-16] MEDS: MECLIZINE HCL 25 MG TABLET PO (12:42)
== END 2021-07-16 13:52 | disposition home or self-care (01) ==
PROVIDERS: Physician Assistant; Emergency Provider Emergency Medicine
DX: R42 Dizziness and giddiness (principal); I10 Essential (primary) hypertension; M16.12 Unilateral primary osteoarthritis, left hip; R94.31 Abnormal electrocardiogram [ECG] [EKG]
CPT/HCPCS: 36415; 70450; 71046; 80048; 85025; 93005; 96374; 99284; A9270; J2405; J7040